=== PATIENT | female | born 1955 | race Caucasian/White ===

== ENCOUNTER 2018-07-29 00:22 | Emergency (ER) | payer OTHER | END 2018-07-29 02:23 | disposition home or self-care (01) | LOC: FTE 00:22 | DX: S52.121A Displaced fracture of head of right radius, initial encounter for closed fracture (principal); F17.210 Nicotine dependence, cigarettes, uncomplicated; X58.XXXA Exposure to other specified factors, initial encounter; Y92.9 Unspecified place or not applicable | CPT/HCPCS: 29105; 99283-25 ==

== ENCOUNTER 2019-07-02 08:03 | Inpatient (IN) | payer OTHER ==
[2019-07-02] MEDS: IBUPROFEN 200 MG TAB PO (14:00)
[2019-07-02] MEDS: IBUPROFEN 400 MG TAB PO ×2 (14:27→23:39)
[2019-07-02] MEDS ORDERED: CEFTRIAXONE 1 GM/50 ML (PMX) 50 ML IVPB (16:30)
[2019-07-02] MEDS ORDERED: morphine 2 MG INJ IV (16:30)
[2019-07-02] MEDS ORDERED: ONDANSETRON 4 MG INJ IV (16:30)
[2019-07-02] MEDS ORDERED: HYDROCODONE/APAP (5/325) TAB PO (16:30)
[2019-07-02] MEDS ORDERED: DOCUSATE SODIUM 100 MG CAP PO (16:30)
[2019-07-02] MEDS ORDERED: ACETAMINOPHEN 325 MG TAB PO (16:30)
[2019-07-02] MEDS ORDERED: NACL 0.9% 3 ML SYG IV (16:30)
[2019-07-02] MEDS ORDERED: ZOLPIDEM 5 MG TAB PO (16:30)
[2019-07-02 19:21] LABS: ADD UMIC YES; UR ASCORBIC ACID NEGATIVE (NEGATIVE); UR BILIRUBIN (Dip) NEGATIVE (NEGATIVE); UR BLOOD (Dip) 2+ mg/dL (NEGATIVE); UR CLARITY CLEAR (CLEAR); UR COLOR YELLOW (YELLOW); UR GLUCOSE (Dip) NEGATIVE (NEGATIVE); UR KETONES (Dip) TRACE mg/dL (NEGATIVE); UR LEUKOCYTE ESTERASE (Dip) 1+ Leu/ul (NEGATIVE); UR NITRITE (Dip) NEGATIVE (NEGATIVE); UR RBC 5 /HPF (0-5); UR SPECIFIC GRAVITY (Dip) 1.014 (1.003-1.030); UR SQUAMOUS EPITHELIAL CELL FEW /HPF (FEW); UR TOTAL PROTEIN (Dip) NEGATIVE (NEGATIVE); UR UROBILINOGEN (Dip) NEGATIVE (NEGATIVE); UR WBC 2 /HPF (0-5)
[2019-07-02] MEDS: AZITHROMYCIN 500MG/NS (PMX) 250 ML IVPB (20:04)
[2019-07-03 05:54] LABS: ADD MAN DIFF? NO
[2019-07-03 05:59] LABS: WHITE BLOOD COUNT 8.6 10^3/ul (4.8-10.8)
[2019-07-03 05:59] LABS: BASOPHILS % 0.3 % (0.0-2.0); EOSINOPHILS # 0.1 10^3/ul (0.0-0.5); EOSINOPHILS % 0.9 % (0.0-7.0); HEMATOCRIT 33.5 % (37.0-47.0); HEMOGLOBIN 10.9 g/dl (12.0-16.0); LYMPHOCYTES # 3.1 10^3/ul (0.8-2.9); LYMPHOCYTES % 36.2 % (15.0-51.0); MEAN CORPUSCULAR HEMOGLOBIN 29.6 pg (29.0-33.0); MEAN CORPUSCULAR HGB CONC 32.5 g/dl (32.0-37.0); MEAN PLATELET VOLUME 10.5 fl (7.4-10.4); MONOCYTE # 0.9 10^3/ul (0.3-0.9); MONOCYTES % 10.5 % (0.0-11.0); NEUTROPHIL # 4.5 10^3/ul (1.6-7.5); NEUTROPHILS % 51.8 % (39.0-77.0); PLATELET COUNT 266 10^3/UL (140-415); RED BLOOD COUNT 3.68 10^6/ul (4.20-5.40); RED CELL DISTRIBUTION WIDTH 12.7 % (11.5-14.5)
[2019-07-03 06:31] LABS: ANION GAP 4 (5-13); BLOOD UREA NITROGEN 12 mg/dl (7-20); CALCIUM 9.4 mg/dl (8.4-10.2); CARBON DIOXIDE 29 mmol/L (21-31); CHLORIDE 108 mmol/L (97-110); CHOL/HDL RATIO 2.5 RATIO; CHOLESTEROL 158 mg/dl (100-200); Estimated GFR > 60 mL/min (>60); GLUCOSE 101 mg/dl (70-220); HDL CHOLESTEROL 63 mg/dl (35-98); LDL CHOLESTEROL,CALCULATED 87 mg/dl; MAGNESIUM 2.1 mg/dl (1.7-2.5); PHOSPHORUS 3.8 mg/dl (2.5-4.9); POTASSIUM 4.3 mmol/L (3.5-5.1); SODIUM 141 mmol/L (135-144); TRIGLYCERIDES 38 mg/dl (0-149)
[2019-07-03 06:40] LABS: T3 UPTAKE 33.7 % (23.5-40.5); T4 (THYROXINE) 8.6 ug/dl (5.5-11.0)
[2019-07-03 06:51] LABS: HEMOGLOBIN A1C 5.6 % (0-5.9)
[2019-07-03 08:20] LABS: C-REACTIVE PROTEIN 5.3 mg/dl (0.0-0.9)
[2019-07-03] MEDS: FUROSEMIDE 20 MG INJ IV (08:42)
[2019-07-03] MEDS: NICOTINE (14 MG/24 HR) PATCH TRANSDERM (08:42)
[2019-07-03 10:03] LABS: ERYTHROCYTE SEDIMENTATION RATE 41 mm/Hr (0-30)
== END 2019-07-03 16:30 | disposition home or self-care (01) | DRG 188 ==
LOC: REC 08:03 → PP2 12:00
DX: J90 Pleural effusion, not elsewhere classified (principal); F17.210 Nicotine dependence, cigarettes, uncomplicated; G47.33 Obstructive sleep apnea (adult) (pediatric); G43.909 Migraine, unspecified, not intractable, without status migrainosus; R07.89 Other chest pain; R07.81 Pleurodynia; Z90.49 Acquired absence of other specified parts of digestive tract
CPT/HCPCS: 71045; 76604; 76705; 80048; 80061; 81001; 83036; 83735; 84100; 84436; 84479; 85025; 85651; 86140; 87081